=== PATIENT | male | born 1945 | race Caucasian/White ===

== ENCOUNTER → 2020-08-09 10:59 | Outpatient (BNVA) | payer MEDICARE, SELFPAY | PROVIDERS: PCP Internal Medicine; Referring Provider Internal Medicine; Visit Provider Nurse Practitioner Family | DX: I25.10 Atherosclerotic heart disease of native coronary artery without angina pectoris (principal); I10 Essential (primary) hypertension; E78.5 Hyperlipidemia, unspecified; I73.9 Peripheral vascular disease, unspecified; Z98.890 Other specified postprocedural states | CPT/HCPCS: 99214 ==

== ENCOUNTER 2020-08-30 07:51 | Outpatient (REF) | payer MEDICARE, SELFPAY ==
--- NOTE | 2020-08-30 | PFT_ITS ---
FLOWS: FEV1 75% of predicted at 2.40 L. FVC 94% of predicted at 4.15 L. FEV1 to FVC ratio of 0.58. No bronchodilator response. LUNG VOLUMES: Total lung capacity 80% of predicted at 5.82 L. Residual volume 66% of predicted at 1.75 L. Slow vital capacity 87% of predicted at 4.07 L. Expiratory reserve volume 69% of predicted at 0.90 L. Diffusion capacity is severely decreased. IMPRESSION: Moderate obstructive ventilatory defect with no bronchodilator response. Decreased diffusion capacity suggests emphysema. 6-minute walk test. Preprocedure O2 saturation 97% on room air. Preprocedure pulse 96 beats per minute. Preprocedure Kip Dyspnea Scale score 2. The patient ambulated without the use of a supplemental oxygen for 1 minute and 30 seconds with desaturation down to 87%. At that time, patient was placed on supplemental oxygen at 2 L/minute via nasal cannula and has completed his 6-minute walk test without further desaturation. IMPRESSION: The patient requires supplemental oxygen at 2 L/minute to maintain normoxemia with exertion. MD ERA Schneider/MODL / [id number]
== END 2020-08-30 07:52 | disposition home or self-care (01) ==
LOC: HO.RESP 07:51
PROVIDERS: Visit Provider Internal Medicine
DX: J43.9 Emphysema, unspecified (principal); Z87.891 Personal history of nicotine dependence
CPT/HCPCS: 94060; 94727; 94729

== ENCOUNTER → 2020-11-09 10:28 | Outpatient (BNVA) | payer MEDICARE, SELFPAY | PROVIDERS: PCP Internal Medicine; Visit Provider Internal Medicine Pulmonary Disease | DX: J44.9 Chronic obstructive pulmonary disease, unspecified (principal); J61 Pneumoconiosis due to asbestos and other mineral fibers; R91.1 Solitary pulmonary nodule; Z99.81 Dependence on supplemental oxygen | CPT/HCPCS: 99202 ==

== ENCOUNTER → 2020-11-30 08:50 | Outpatient (BNVA) | payer MEDICARE, SELFPAY | PROVIDERS: PCP Internal Medicine; Visit Provider Internal Medicine Pulmonary Disease | DX: J61 Pneumoconiosis due to asbestos and other mineral fibers (principal); J44.9 Chronic obstructive pulmonary disease, unspecified; R91.1 Solitary pulmonary nodule; Z99.81 Dependence on supplemental oxygen | CPT/HCPCS: 99212 ==

== ENCOUNTER 2021-03-06 10:13 | Outpatient (REF) | payer MEDICARE, SELFPAY ==
[2021-03-06 11:28] LABS: Glucose Urine UA NEG (NEG); Leukocyte Esterase Urine NEG (NEG); Nitrite Urine NEG (NEG); Urine Blood NEG (NEG); Urine Ketones NEG (NEG); Urine Protein NEG (NEG-TRACE)
[2021-03-06 11:29] LABS: Appearance Urine CLEAR; Color Urine YELLOW
[2021-03-06 11:47] LABS: Hematocrit 52.3 % (42-52); Hemoglobin 17.8 g/dl (14.0-18.0); Mean Corpuscular Hemoglobin 29.7 pg (27.0-33.0); Mean Corpuscular Volume 87.2 fL (80-98); Mean Platelet Volume 11.4 fL (9.4-12.4); Platelet Count 169 X10*3/uL (160-400); Red Cell Distribution Width 12.8 % (11.0-16.0); White Blood Count 6.9 X10*3/uL (4.8-10.8)
[2021-03-06 12:04] LABS: Alanine Aminotransferase 28 U/L (0-40); Albumin Level 4.6 g/dL (3.5-5.0); Alkaline Phosphatase 91 U/L (39-117); Anion Gap 13 (12-20); Aspartate Amino Transferase 16 U/L (5-37); Bilirubin Total 1.6 mg/dL (0.0-1.0); Blood Urea Nitrogen 13 mg/dL (9-16); Carbon Dioxide 28 mmol/L (22-29); Chloride 100 mmol/L (96-108); Cholesterol 180 mg/dL; Estimated Glomerular Filt Rate > 60; Glucose Fasting 139 mg/dL (60-99); HDL Cholesterol 35 mg/dL; LDL Cholesterol Calculated 97 mg/dl; Potassium 4.4 mmol/L (3.3-5.1); Sodium 137 mmol/L (135-145); Total Protein 7.4 g/dL (6.5-8.0); Triglycerides 242 mg/dL
[2021-03-06 12:12] LABS: Thyroid Stimulating Hormone 1.02 uIU/mL (0.32-4.0)
== END 2021-03-06 10:14 | disposition home or self-care (01) ==
LOC: HO.HMGCLDS 10:13
PROVIDERS: PCP Internal Medicine; Visit Provider Internal Medicine
DX: J44.9 Chronic obstructive pulmonary disease, unspecified (principal); R09.02 Hypoxemia; E78.00 Pure hypercholesterolemia, unspecified; I73.9 Peripheral vascular disease, unspecified; R35.1 Nocturia; R07.81 Pleurodynia
CPT/HCPCS: 36415; 80053; 80061; 81003; 84443; 85027

== ENCOUNTER 2021-03-06 11:28 | Outpatient (REF) | payer MEDICARE, SELFPAY ==
--- NOTE | ~2021-03-06 | XR_ITS ---
EXAMINATION: XR RIBS, LEFT CLINICAL INFORMATION: Pleura dynamic COMPARISON: None TECHNIQUE: 3 views of the left ribs were obtained. FINDINGS: Both lungs are fairly well-expanded and clear of acute process. There is an azygos lobe right upper lobe. The right hemidiaphragm is elevated. Heart size is borderline enlarged. Pulmonary vascularity is normal. Multiple views of left ribs reveal no visible acute fracture or bony abnormality. XR/XR ribs LT min 3V w CXR1V IMPRESSION: Unremarkable chest exam. Unremarkable left rib exam.
== END 2021-03-06 11:29 | disposition home or self-care (01) ==
LOC: HO.HMGCX 11:28
PROVIDERS: PCP Internal Medicine; Visit Provider Hospitalist
DX: R07.81 Pleurodynia (principal)
CPT/HCPCS: 71101; 80053; 80061; 81003; 84443; 85027